=== PATIENT | male | born 1945 | race Caucasian/White ===

== ENCOUNTER 2020-09-08 02:02 | Emergency (ER) | payer MEDICARE, OTHER ==
[~2020-09-08 02:02] MED LIST: ABILIFY 2 MG TAB2 MG PO; CEFUROXIME500 MG PO; CIPRO500 MG PO; DIAZEPAM10 MG PO; ELIQUIS5 MG PO; ESCITALOPRAM OX20 MG PO; FINASTERIDE5 MG PO; FLOMAX0.4 MG PO; MACROBID 100 M100 MG PO; MYRBETRIQ25 MG PO; NASONEX SPRAY 117 GM; OMEPRAZOLE40 MG PO; PYRIDIUM200 MG PO; SYMBICORT 16010.2 GM INH; VALIUM10 MG PO
[2020-09-08 02:41] LABS: HEMOGLOBIN 14.8 gm/dl (14.0-17.5); RED BLOOD COUNT 4.7 M/UL (4.20-5.50)
[2020-09-08 02:59] LABS: BUN/CREATININE RATIO 12 (0-10)
[2020-09-08] MEDS ORDERED: HYDROCODON-ACE1 EAC4 PO ×2 (07:24→07:28)
[2020-11-26] MEDS ORDERED: METOPROLOL SUCC25 MG PO (09:04)
[2020-11-26] MEDS ORDERED: LIPITOR TAB 1010 MG PO (09:07)
== END 2020-09-08 07:30 | disposition home or self-care (01) ==
LOC: ER1 02:02
PROVIDERS: Emergency Medicine
DX: R39.12 Poor urinary stream (principal); I10 Essential (primary) hypertension; E78.5 Hyperlipidemia, unspecified
CPT/HCPCS: 80053; 81001; 85025; 87086; 99284; Q9967

== ENCOUNTER → 2020-10-14 | Outpatient (CLI) | payer MEDICARE, OTHER ==
[~2020-10-14] MED LIST changes: +HYDROCODON-ACE1 EAC4 PO; +LIPITOR TAB 1010 MG PO; +METOPROLOL SUCC25 MG PO
== END ==
LOC: RAD 17:19
DX: R05 Cough (principal); R93.89 Abnormal findings on diagnostic imaging of other specified body structures
CPT/HCPCS: 71046

== ENCOUNTER → 2020-10-21 | Outpatient (CLI) | payer MEDICARE, OTHER | LOC: CT 09:30 | DX: R59.1 Generalized enlarged lymph nodes (principal); K11.8 Other diseases of salivary glands | CPT/HCPCS: 70491; 71260; Q9967 ==

== ENCOUNTER → 2020-11-15 | Outpatient (CLI) | payer MEDICARE, OTHER | LOC: CT 08:30 → US 10:00 | PROC: 07B13ZX Excision of Right Neck Lymphatic, Percutaneous Approach, Diagnostic (ICD-10-PCS; principal; 2020-11-15) | DX: R59.0 Localized enlarged lymph nodes (principal) ==

== ENCOUNTER → 2020-11-26 | Outpatient (CLI) | payer MEDICARE, OTHER ==
[2020-11-26 09:31] LABS: HEMOGLOBIN 13.9 gm/dl (14.0-17.5); RED BLOOD COUNT 4.36 M/UL (4.20-5.50); WHITE BLOOD COUNT 5.7 K/UL (4.5-11.0)
== END ==
LOC: CT 07:45
PROVIDERS: Radiology Diagnostic Radiology
DX: C85.19 Unspecified B-cell lymphoma, extranodal and solid organ sites (principal); N28.89 Other specified disorders of kidney and ureter; Z20.822 Contact with and (suspected) exposure to COVID-19
CPT/HCPCS: 36415; 77012; 85027; 85610; 88341; 88342; 88360; Q9965; U0002

== ENCOUNTER 2020-12-28 01:27 | Emergency (ER) | payer MEDICARE, OTHER | END 2020-12-28 04:15 | disposition home or self-care (01) | LOC: ER1 01:27 | DX: R33.9 Retention of urine, unspecified (principal); E78.5 Hyperlipidemia, unspecified | CPT/HCPCS: 51798; 81001; 87086; 99283 ==